=== PATIENT | female | born 1970 | race Caucasian/White ===

== ENCOUNTER 2022-07-08 04:01 | Inpatient (IN) | payer OTHER ==
[2022-07-08] VITALS (14 sets, daily range): BP systolic 82–120; BP diastolic 48–69
[~2022-07-08] VITALS: Ht 160 cm; Wt 51.0 kg
[2022-07-08] MEDS ORDERED: SODIUM CHLORIDE 0.9% 1,000 ML IV ONE ×2 (05:15→15:15)
[2022-07-08 05:19] LABS: Alanine Aminotransferase 9 U/L (13-56); Albumin 2.5 g/dL (3.4-5.0); Anion Gap 14 (5-15); Aspartate Aminotransferase 9 U/L (15-37); BUN/Creatinine Ratio 11.3 (10.0-20.0); Blood Urea Nitrogen 8 mg/dL (7-18); Carbon Dioxide 21 mmol/L (21-32); Chloride 98 mmol/L (98-107); GFR African American 112 mL/min; GFR Non-African American 93 mL/min; Glucose 132 mg/dL (74-106); Sodium 133 mmol/L (136-145)
[2022-07-08 05:21] LABS: Alkaline Phosphatase 32 U/L (45-117); Bilirubin, Total 0.6 mg/dL (0.2-1.0); Total Protein 5.4 g/dL (6.4-8.2)
[2022-07-08 05:47] LABS: Magnesium 0.6 mg/dL (1.6-2.6); Potassium 2.2 mmol/L (3.5-5.1)
[2022-07-08 06:03] LABS: Hematocrit 13.5 % (36.0-46.0); Mean Corpuscular Hemoglobin 36.8 pg (28.0-32.0); Red Blood Cells 1.28 10^6/uL (4.0-5.20); Red Cell Distribution Width 15.1 % (11.8-14.3)
[2022-07-08 06:07] LABS: Hemoglobin 4.7 g/dL (12.2-16.2); White Blood Cell 0.2 10^3/uL (4.4-10.8)
[2022-07-08 06:09] LABS: Band Neutrophils % (manual) 0; Basophils % (manual) 0 (0.0-2.0); Blast Cells 0; Eosinophils % (manual) 0 (0-7); Metamyelocytes % 0; Monocytes % (manual) 0 (0-12); Myelocytes % 0; Promyelocytes % 0; Reactive Lymphocytes 0
[2022-07-08 06:12] LABS: Lymphocytes % (manual) 97 (10.0-50.0)
[2022-07-08 07:12] LABS: Urine Bacteria MOD /hpf (None Seen); Urine Blood 3+ /uL (Negative); Urine Specific Gravity 1.011 (1.001-1.035); Urine WBC 6 /hpf (0 - 5)
[2022-07-08 07:58] LABS: Ferritin 1050.3 ng/mL (10-322)
[2022-07-08] MEDS ORDERED: POTASSIUM CHL 20 Meq TABLET PO ONE (08:00)
[2022-07-08] MEDS ORDERED: D5W/SOD CHL 0.45%/KCL 40MEQ 1,000 ML IV ONE (08:00)
[2022-07-08] MEDS ORDERED: MAGNESIUM OXIDE 400 MG TAB PO ONE (08:00)
[2022-07-08 08:28] LABS: % Iron Saturation 29.6 % (15-50)
[2022-07-08] MEDS ORDERED: VANCOMYCIN 1GM/250ML 250 ML IV ONE (08:45)
[2022-07-08] MEDS ORDERED: PIPERACILLIN-TAZOB 3.375GM 100 ML IV ONE (08:45)
[2022-07-08] MEDS ORDERED: MORPHINE SULFATE INJ 2 MG/ml SYRG IV PRN ×2 (09:45→15:00)
[2022-07-08] MEDS ORDERED: DOCUSATE SOD 100 MG CAP PO PRN (09:45)
[2022-07-08] MEDS ORDERED: CALCIUM GLUC 1,000mg/50ml-NS 50 ML IV ONE (09:45)
[2022-07-08] MEDS ORDERED: ONDANSETRON HCL 4 MG/2 ML VIAL IV PRN ×2 (09:45→15:00)
[2022-07-08] MEDS ORDERED: DEXTROSE (50%) 50ML SYRG IV PRN (09:45)
[2022-07-08] MEDS: MAGNESIUM SULFATE 1GM/100ML 100 ML IV SCH ×2 (09:57→11:15)
[2022-07-08] MEDS ORDERED: PANTOPRAZOLE 40 MG/10 ML VIAL INJ IV SCH (10:00)
[2022-07-08] MEDS ORDERED: VANCOMYCIN PER PHARMACY 0 MG IV SCH (10:45)
[2022-07-08] MEDS ORDERED: D5W/SOD CHL 0.45%/KCL 20MEQ 1,000 ML IV ONE ×3 (11:00→16:30)
[2022-07-08] MEDS: ACCU-CHEK COMFORT CURVE STRIP VI SCH ×2 (12:45→17:40)
[2022-07-08] MEDS: InsuLIN REG 1unit/0.01ml Soln (100units/ml) SC SCH ×2 (12:48→17:39)
[2022-07-08] MEDS ORDERED: PANTOPRAZOLE 40 MG/10 ML VIAL INJ IV ONE (13:00)
[2022-07-08] MEDS: ACETAMINOPHEN 325 MG TAB PO PRN ×2 (13:48→22:00)
[2022-07-08] MEDS ORDERED: PIPERACILLIN-TAZOB 3.375GM 100 ML IV SCH (15:00)
[2022-07-08] MEDS: VANCOMYCIN 750mg/250ml 250 ML IV SCH (18:27)
[2022-07-08] MEDS ORDERED: ATEN25TA PO (19:03)
[2022-07-08] MEDS ORDERED: POTA-180 PO (19:05)
[2022-07-08] MEDS ORDERED: ONDA-144 PO (19:07)
[2022-07-08 20:16] LABS: Basophils # (auto) 0 10 ^3/uL (0-0.2); Eosinophils # (auto) 0 10 ^3/uL (0-0.8); Lymphocytes # (auto) 0.1 10 ^3/uL (0.4-5.4); Monocytes # (auto) 0 10 ^3/uL (0-1.3); Neutrophils # (auto) 0 10 ^3/uL (1.6-8.6); Nucleated Red Blood Cells % 0.5 %
[2022-07-08 20:19] LABS: Eosinophils % (auto) 3.5 % (0.0-7.0); Hematocrit 24.2 % (36.0-46.0); Hemoglobin 8.6 g/dL (12.2-16.2); Mean Corpuscular Hemoglobin 32.7 pg (28.0-32.0); Mean Corpuscular Hgb Conc. 35.7 g/dL (32.0-36.0); Mean Corpuscular Volume 91.6 fL (80.0-100.0); Neutrophils % (auto) 5.5 % (37.0-80.0); Red Blood Cells 2.64 10^6/uL (4.0-5.20); Red Cell Distribution Width 17.9 % (11.8-14.3)
[2022-07-08 20:27] LABS: Lymphocytes % (auto) 70.4 % (10.0-50.0); Monocytes % (auto) 20.6 % (0.0-12.0)
[2022-07-08 20:30] LABS: White Blood Cell 0.2 10^3/uL (4.4-10.8)
[2022-07-08 20:44] LABS: Albumin 2.3 g/dL (3.4-5.0); Calcium 8.2 mg/dL (8.5-10.1); Magnesium 1.4 mg/dL (1.6-2.6)
[2022-07-08 20:45] LABS: BUN/Creatinine Ratio 8.8 (10.0-20.0)
[2022-07-08 20:54] LABS: Total Protein 5.6 g/dL (6.4-8.2)
[2022-07-08 21:34] LABS: Phosphorus 0.3 mg/dL (2.5-4.90); Potassium 2.6 mmol/L (3.5-5.1)
[2022-07-08] MEDS: CEFEPIME 2 GM in SODIUM CHL 0.9% 50 ML IV SCH (22:00)
[2022-07-08] MEDS ORDERED: POTASSIUM PHOSPHATE 44 MEQ in D5W 5% 250 ML IV ONE (23:45)
[2022-07-09] VITALS: BP 114/63
[2022-07-09] MEDS: VANCOMYCIN 750mg/250ml 250 ML IV SCH ×3 (02:00→14:11)
[2022-07-09] MEDS: POTASSIUM CHL 20MEQ/100ML 100 ML IV SCH ×3 (03:28→09:00)
[2022-07-09 04:00] VITALS: BP 95/62
[2022-07-09] MEDS: CEFEPIME 2 GM in SODIUM CHL 0.9% 50 ML IV SCH ×3 (06:00→21:20)
[2022-07-09] MEDS: ACCU-CHEK COMFORT CURVE STRIP VI SCH ×4 (06:00→17:04)
[2022-07-09] MEDS: InsuLIN REG 1unit/0.01ml Soln (100units/ml) SC SCH ×4 (06:00→17:03)
[2022-07-09 08:00] VITALS: BP 92/63
[2022-07-09] MEDS: ACETAMINOPHEN 325 MG TAB PO PRN (09:04)
[2022-07-09 09:34] LABS: Albumin 2.5 g/dL (3.4-5.0); Calcium 8.7 mg/dL (8.5-10.1)
[2022-07-09 09:38] LABS: BUN/Creatinine Ratio 11.3 (10.0-20.0); Bilirubin, Total 2.7 mg/dL (0.2-1.0); Total Protein 6.3 g/dL (6.4-8.2)
[2022-07-09 09:40] LABS: Hemoglobin 9.3 g/dL (12.2-16.2)
[2022-07-09 09:42] LABS: Hematocrit 26.3 % (36.0-46.0); Mean Corpuscular Hemoglobin 32.7 pg (28.0-32.0); Mean Corpuscular Hgb Conc. 35.3 g/dL (32.0-36.0); Mean Corpuscular Volume 92.6 fL (80.0-100.0); Red Blood Cells 2.84 10^6/uL (4.0-5.20); Red Cell Distribution Width 19.2 % (11.8-14.3)
[2022-07-09 09:45] LABS: White Blood Cell 0.3 10^3/uL (4.4-10.8)
[2022-07-09 09:47] LABS: Band Neutrophils % (manual) 0; Basophils % (manual) 0 (0.0-2.0); Blast Cells 0; Eosinophils % (manual) 0 (0-7); Metamyelocytes % 0; Myelocytes % 0; Promyelocytes % 0; Reactive Lymphocytes 0
[2022-07-09] MEDS ORDERED: POTASSIUM PHOSPHATE 44 MEQ in D5W 5% 250 ML IV ONE (10:00)
[2022-07-09] MEDS: PANTOPRAZOLE 40 MG/10 ML VIAL INJ IV SCH (10:31)
[2022-07-09 10:41] LABS: Potassium 2.6 mmol/L (3.5-5.1)
[2022-07-09 10:52] LABS: Lymphocytes % (manual) 79 (10.0-50.0); Monocytes % (manual) 15 (0-12)
[2022-07-09 12:00] VITALS: BP 93/60
[2022-07-09] MEDS ORDERED: SODIUM CHLORIDE 0.9% 1,000 ML IV ONE (12:00)
[2022-07-09] MEDS: FILGRASTIM (TBO) 300 MCG/0.5 ML SYRG SC SCH (12:11)
[2022-07-09 16:00] VITALS: BP 102/63
[2022-07-09] MEDS ORDERED: diphenhdrAMINE HCL 25 MG CAP PO ONE (20:45)
[2022-07-09 23:00] VITALS: BP 107/60
[2022-07-10] MEDS: ACCU-CHEK COMFORT CURVE STRIP VI SCH
[2022-07-10] MEDS: InsuLIN REG 1unit/0.01ml Soln (100units/ml) SC SCH
[2022-07-10] MEDS: VANCOMYCIN 750mg/250ml 250 ML IV SCH ×2 (03:00→10:00)
[2022-07-10 05:00] VITALS: BP 94/68
[2022-07-10] MEDS: ACETAMINOPHEN 325 MG TAB PO PRN ×2 (06:00→17:34)
[2022-07-10] MEDS: CEFEPIME 2 GM in SODIUM CHL 0.9% 50 ML IV SCH ×3 (06:00→22:54)
[2022-07-10 06:35] LABS: Albumin 2.3 g/dL (3.4-5.0); Calcium 8.1 mg/dL (8.5-10.1)
[2022-07-10 06:38] LABS: BUN/Creatinine Ratio 15.2 (10.0-20.0); Bilirubin, Total 0.8 mg/dL (0.2-1.0); Total Protein 5.4 g/dL (6.4-8.2)
[2022-07-10 06:40] LABS: Potassium 2.5 mmol/L (3.5-5.1)
[2022-07-10] MEDS ORDERED: HYDROcodone-ACET 5/325MG TAB PO ONE (07:30)
[2022-07-10] MEDS ORDERED: POTASSIUM CHL 20 Meq TABLET PO ONE (07:30)
[2022-07-10 07:45] LABS: Basophils # (auto) 0 10 ^3/uL (0-0.2); Eosinophils # (auto) 0 10 ^3/uL (0-0.8); Lymphocytes # (auto) 0.4 10 ^3/uL (0.4-5.4); Monocytes # (auto) 0.2 10 ^3/uL (0-1.3); Neutrophils # (auto) 0.4 10 ^3/uL (1.6-8.6); Nucleated Red Blood Cells % 0.4 %; Red Cell Distribution Width 18.7 % (11.8-14.3)
[2022-07-10 07:47] LABS: Basophils % (auto) 0.7 % (0.0-2.0); Eosinophils % (auto) 0.3 % (0.0-7.0); Hematocrit 23.7 % (36.0-46.0); Hemoglobin 8.5 g/dL (12.2-16.2); Lymphocytes % (auto) 42.1 % (10.0-50.0); Mean Corpuscular Hemoglobin 32.8 pg (28.0-32.0); Mean Corpuscular Volume 91.3 fL (80.0-100.0); Monocytes % (auto) 15.5 % (0.0-12.0); Neutrophils % (auto) 41.4 % (37.0-80.0)
[2022-07-10 08:00] VITALS: BP 99/63
[2022-07-10] MEDS: PANTOPRAZOLE 40 MG/10 ML VIAL INJ IV SCH (11:11)
[2022-07-10] MEDS: FILGRASTIM (TBO) 300 MCG/0.5 ML SYRG SC SCH (11:13)
[2022-07-10] MEDS ORDERED: diphenhdrAMINE HCL 25 MG CAP PO PRN (11:15)
[2022-07-10 12:00] VITALS: BP 90/64
[2022-07-10 16:00] VITALS: BP 99/63
[2022-07-10 17:19] LABS: Folate (Folic Acid) 9.39 ng/mL (5.38-24)
[2022-07-10 20:00] VITALS: BP 88/58
[2022-07-10] MEDS ORDERED: VANCOMYCIN 750mg/250ml 250 ML IV SCH (20:00)
[2022-07-10] MEDS: HYDROcodone-ACET 5/325MG TAB PO PRN (20:48)
[2022-07-10] MEDS: VANCOMYCIN 1GM/250ML 250 ML IV SCH (20:48)
[2022-07-11] VITALS (15 sets, daily range): BP systolic 78–104; BP diastolic 50–69
[2022-07-11] MEDS: VANCOMYCIN 1GM/250ML 250 ML IV SCH ×2 (05:05→10:58)
[2022-07-11] MEDS: HYDROcodone-ACET 5/325MG TAB PO PRN ×2 (05:59→13:24)
[2022-07-11] MEDS: CEFEPIME 2 GM in SODIUM CHL 0.9% 50 ML IV SCH ×3 (05:59→21:28)
[2022-07-11 06:05] LABS: Albumin 2.4 g/dL (3.4-5.0); Calcium 8.1 mg/dL (8.5-10.1); Potassium 3.1 mmol/L (3.5-5.1)
[2022-07-11 06:09] LABS: BUN/Creatinine Ratio 16.7 (10.0-20.0); Bilirubin, Total 0.5 mg/dL (0.2-1.0); Total Protein 5.9 g/dL (6.4-8.2)
[2022-07-11 06:31] LABS: Hemoglobin 8.8 g/dL (12.2-16.2)
[2022-07-11 07:22] LABS: Hematocrit 24.5 % (36.0-46.0); Mean Corpuscular Hemoglobin 33.4 pg (28.0-32.0); Mean Corpuscular Hgb Conc. 35.8 g/dL (32.0-36.0); Mean Corpuscular Volume 93.5 fL (80.0-100.0); Red Blood Cells 2.63 10^6/uL (4.0-5.20); Red Cell Distribution Width 18.7 % (11.8-14.3); White Blood Cell 2.2 10^3/uL (4.4-10.8)
[2022-07-11 07:23] LABS: Basophils % (manual) 0 (0.0-2.0); Eosinophils % (manual) 0 (0-7); Myelocytes % 0; Reactive Lymphocytes 0
[2022-07-11] MEDS: PANTOPRAZOLE 40 MG/10 ML VIAL INJ IV SCH (08:07)
[2022-07-11] MEDS: FILGRASTIM (TBO) 300 MCG/0.5 ML SYRG SC SCH (08:08)
[2022-07-11] MEDS ORDERED: SOD CHL 0.9%/ KCL 40MEQ 1,000 ML IV ONE (08:30)
[2022-07-11 09:54] LABS: Band Neutrophils % (manual) 8; Blast Cells 1; Lymphocytes % (manual) 14 (10.0-50.0); Metamyelocytes % 3; Monocytes % (manual) 9 (0-12); Promyelocytes % 1
[2022-07-11] MEDS: ACETAMINOPHEN 325 MG TAB PO PRN (12:22)
[2022-07-12] VITALS (8 sets, daily range): BP systolic 79–113; BP diastolic 49–75
[2022-07-12] MEDS: HYDROcodone-ACET 5/325MG TAB PO PRN ×4 (03:17→22:38)
[2022-07-12] MEDS: CEFEPIME 2 GM in SODIUM CHL 0.9% 50 ML IV SCH ×3 (05:19→22:38)
[2022-07-12 06:06] LABS: Hematocrit 21.8 % (36.0-46.0); Mean Corpuscular Hemoglobin 33.9 pg (28.0-32.0); Mean Corpuscular Volume 92.2 fL (80.0-100.0); Red Blood Cells 2.37 10^6/uL (4.0-5.20)
[2022-07-12 06:14] LABS: Albumin 2.3 g/dL (3.4-5.0); Calcium 7.9 mg/dL (8.5-10.1)
[2022-07-12 06:18] LABS: BUN/Creatinine Ratio 13.2 (10.0-20.0); Bilirubin, Total 0.4 mg/dL (0.2-1.0)
[2022-07-12 06:34] LABS: Potassium 2.4 mmol/L (3.5-5.1)
[2022-07-12 07:16] LABS: Mean Corpuscular Hgb Conc. 36.7 g/dL (32.0-36.0)
[2022-07-12 07:17] LABS: Basophils % (manual) 0 (0.0-2.0); Blast Cells 0; Eosinophils % (manual) 0 (0-7); Myelocytes % 0; Promyelocytes % 0; Reactive Lymphocytes 0
[2022-07-12] MEDS: POTASSIUM CHL 20MEQ/100ML 100 ML IV SCH ×3 (08:54→15:44)
[2022-07-12 08:58] LABS: Band Neutrophils % (manual) 6; Lymphocytes % (manual) 11 (10.0-50.0); Metamyelocytes % 2; Monocytes % (manual) 15 (0-12)
[2022-07-12] MEDS: PANTOPRAZOLE 40 MG/10 ML VIAL INJ IV SCH (09:50)
[2022-07-12] MEDS: POTASSIUM CHL 20 Meq TABLET PO SCH ×2 (11:29→22:38)
[2022-07-12 12:31] LABS: Phosphorus 2.3 mg/dL (2.5-4.90)
[2022-07-12 12:45] LABS: Magnesium 0.9 mg/dL (1.6-2.6)
[2022-07-12] MEDS: MAGNESIUM SULFATE 1GM/100ML 100 ML IV SCH ×2 (13:56→15:03)
[2022-07-12 21:48] LABS: Calcium 8.5 mg/dL (8.5-10.1); Magnesium 1.4 mg/dL (1.6-2.6)
[2022-07-12 21:51] LABS: BUN/Creatinine Ratio 9.8 (10.0-20.0)
[2022-07-12 21:56] LABS: Potassium 2.7 mmol/L (3.5-5.1)
[2022-07-13] VITALS: BP 99/71
[2022-07-13 04:00] VITALS: BP 101/63
[2022-07-13] MEDS ORDERED: POTASSIUM CHL 20 Meq TABLET PO ONE (04:45)
[2022-07-13] MEDS: CEFEPIME 2 GM in SODIUM CHL 0.9% 50 ML IV SCH (05:54)
[2022-07-13 06:26] LABS: Anion Gap 8 (5-15); BUN/Creatinine Ratio 8.8 (10.0-20.0); Blood Urea Nitrogen 3 mg/dL (7-18); Calcium 8.4 mg/dL (8.5-10.1); Carbon Dioxide 23 mmol/L (21-32); Chloride 107 mmol/L (98-107); GFR African American 262 mL/min; GFR Non-African American 217 mL/min; Glucose 87 mg/dL (74-106); Sodium 138 mmol/L (136-145)
[2022-07-13 06:30] LABS: Potassium 2.9 mmol/L (3.5-5.1)
[2022-07-13 06:39] LABS: Phosphorus 1.8 mg/dL (2.5-4.90)
[2022-07-13 08:17] VITALS: BP 101/63
[2022-07-13] MEDS: HYDROcodone-ACET 5/325MG TAB PO PRN (08:36)
== END 2022-07-13 09:36 | disposition left against medical advice (07) | DRG 871 ==
LOC: EDBD 04:01 → ER 04:01 → TELE 10:11 → DOU IN ICU 13:00
PROVIDERS: ADMIT Nurse Practitioner Family; ATTEND Family Medicine
PROC: 30233N1 Transfusion of Nonautologous Red Blood Cells into Peripheral Vein, Percutaneous Approach (ICD-10-PCS; principal; 2022-07-08)
PROC: 02HV33Z Insertion of Infusion Device into Superior Vena Cava, Percutaneous Approach (ICD-10-PCS; 2022-07-08)
PROC: B548ZZA Ultrasonography of Superior Vena Cava, Guidance (ICD-10-PCS; 2022-07-08)
DX: A41.9 Sepsis, unspecified organism (principal); D61.810 Antineoplastic chemotherapy induced pancytopenia; E87.1 Hypo-osmolality and hyponatremia; N39.0 Urinary tract infection, site not specified; D62 Acute posthemorrhagic anemia; S02.2XXA Fracture of nasal bones, initial encounter for closed fracture; C50.919 Malignant neoplasm of unspecified site of unspecified female breast; E87.6 Hypokalemia; C50.912 Malignant neoplasm of unspecified site of left female breast; T45.1X5A Adverse effect of antineoplastic and immunosuppressive drugs, initial encounter; E83.42 Hypomagnesemia; Z20.822 Contact with and (suspected) exposure to COVID-19; S00.83XA Contusion of other part of head, initial encounter; Z53.29 Procedure and treatment not carried out because of patient's decision for other reasons; E83.51 Hypocalcemia; W18.39XA Other fall on same level, initial encounter; M54.2 Cervicalgia; I95.1 Orthostatic hypotension; E86.0 Dehydration; Z93.3 Colostomy status; Z79.899 Other long term (current) drug therapy; Z85.3 Personal history of malignant neoplasm of breast; Y93.89 Activity, other specified; Y99.8 Other external cause status; Y92.092 Bedroom in other non-institutional residence as the place of occurrence of the external cause
CPT/HCPCS: 36415; 36430; 70450; 70486; 71045; 72125; 80048; 80053; 80202; 81001; 82607; 82728; 82746; 82962; 83540; 83550; 83605; 83615; 83735; 84100; 84439; 84443; 84484; 84702; 85007; 85025; 85027; 85045; 86850; 86900; 86901; 86920; 87040; 87081; 87086; 87426; 93005; 93306; 93886; 96365; 96367; 96368; 96375; 97110; 97116; 97163; C9113; G0378; J1447; J1815; J2405; J2543; J3480; J7060